=== PATIENT | female | born 1955 | race African-American/Black ===

== ENCOUNTER 2017-02-04 11:03 | Inpatient (IN) | payer MEDICAID ==
[~2017-02-04] VITALS: Ht 162.6 cm; Wt 59.0 kg
[2017-02-04] MEDS ORDERED: SODIUM CHLORIDE 0.9% 1,000 ML IV ONE (11:26)
[2017-02-04 11:58] LABS: BASOPHILS % 1.8 % (0.0-2.0); EOSINOPHILS % 0.7 % (0.0-5.0); HEMATOCRIT. 46.1 % (36.0-48.0); LYMPHOCYTES % 13.4 % (20.0-50.0); MEAN CORPUSCULAR HEMOGLOBIN 34.8 pg (28.0-32.0); MEAN PLATELET VOLUME 9.7 fl (7.4-10.4); MONOCYTES % 10.4 % (2.0-8.0); NEUTROPHILS % 73.7 % (40.0-76.0); PLATELET 252 x1000/uL (130-400); RED BLOOD CELL COUNT 4.61 mill/uL (4.2-5.4); RED CELL DISTRIBUTION WIDTH 14.5 % (11.6-14.6)
[2017-02-04 12:09] LABS: AMMONIA 20 uMol/L (<32)
[2017-02-04 12:12] LABS: INR 1.1; PARTIAL THROMBOPLASTIN TIME 31.3 sec (23.4-31.0); PROTHROMBIN TIME 11.6 sec (9.4-11.6)
[2017-02-04 12:15] LABS: CARBON DIOXIDE 25 mEq/L (21-32); CHLORIDE 103 mEq/L (98-107); ETHANOL BLOOD < 10 mg/dL; TROPONIN I < 0.02 ng/mL (0.00-0.04)
[2017-02-04] MEDS ORDERED: ASPIRIN 325MG EC TABLET PO ONE (13:00)
[2017-02-04 14:09] LABS: CLARITY URINE CLEAR (CLEAR); COLOR URINE YELLOW (YELLOW); GLUCOSE URINE TRACE (NEGATIVE); KETONES URINE TRACE (NEGATIVE); LEUKOCYTE ESTERASE URINE TRACE (NEGATIVE); NITRITE URINE POSITIVE (NEGATIVE); OCCULT BLOOD URINE NEGATIVE (NEGATIVE); PH URINE 7.5 (4.5-8.0); PROTEIN URINE NEGATIVE (NEGATIVE); UROBILINOGEN URINE 0.2 E.U./dL (0.2-1.0)
[2017-02-04 14:26] LABS: *AMPHETAMINES SCREEN URINE NEGATIVE (NEGATIVE); *BARBITURATES SCREEN URINE NEGATIVE (NEGATIVE); *BENZODIAZEPINES SCREEN URINE NEGATIVE (NEGATIVE); *COCAINE SCREEN URINE PRESUMTIVE POSITIVE (NEGATIVE); CANNABINOID URINE SCREEN NEGATIVE (NEGATIVE); METHADONE URINE SCREEN NEGATIVE (NEGATIVE); OPIATES URINE SCREEN NEGATIVE (NEGATIVE); PHENCYCLIDINE URINE SCREEN NEGATIVE (NEGATIVE)
[2017-02-04] MEDS ORDERED: DOCUSATE SODIUM 100MG CAPSULE PO PRN (14:30)
[2017-02-04] MEDS ORDERED: MAGNESIUM/ALUMINUM HYDROXIDE/SIMETHICONE 30ML UDC PO PRN (14:30)
[2017-02-04] MEDS ORDERED: LORAZEPAM 0.5MG TABLET PO PRN (14:30)
[2017-02-04] MEDS ORDERED: IPRATROPIUM/ALBUTEROL 0.5-3(2.5)MG/3ML NEB INH PRN (14:30)
[2017-02-04] MEDS ORDERED: ONDANSETRON HCL 4MG/2ML VIAL IV PRN (14:30)
[2017-02-04] MEDS ORDERED: ACETAMINOPHEN 325MG TABLET PO PRN (14:30)
[2017-02-04] MEDS ORDERED: CEFTRIAXONE 1 G PREMIX 50 ML IV ONE (16:00)
[2017-02-04 20:00] VITALS: BP 195/94
[2017-02-04] MEDS ORDERED: CEFTRIAXONE 1 G PREMIX 50 ML IV NR (21:00)
[2017-02-04 22:00] VITALS: BP 195/94
[2017-02-05] VITALS: BP 166/85
[2017-02-05] MEDS: CLONIDINE 0.1MG TABLET PO PRN ×2 (00:17→20:58)
[2017-02-05 00:47] LABS: CARBON DIOXIDE 28 mEq/L (21-32); CHLORIDE 100 mEq/L (98-107); CREATINE KINASE 69 IU/L (26-192); CREATINE KINASE MB FRACTION 1.1 ng/mL (0.5-3.6); TROPONIN I < 0.02 ng/mL (0.00-0.04)
[2017-02-05 04:00] VITALS: BP_SYST 135; BP_SYST 141; BP_DIAS 65; BP_DIAS 79
[2017-02-05] MEDS ORDERED: DEXTROSE 50% WATER 50ML SYRINGE IV PRN (06:15)
[2017-02-05 06:20] LABS: BASOPHILS % 0.3 % (0.0-2.0); EOSINOPHILS % 1.4 % (0.0-5.0); HEMATOCRIT. 45.9 % (36.0-48.0); HEMOGLOBIN. 15.8 g/dL (12.0-16.0); LYMPHOCYTES % 24.6 % (20.0-50.0); MEAN CORPUSCULAR VOLUME 101.7 fL (81.0-99.0); MEAN PLATELET VOLUME 10.4 fl (7.4-10.4); NEUTROPHILS % 61.7 % (40.0-76.0); PLATELET 246 x1000/uL (130-400); RED BLOOD CELL COUNT 4.51 mill/uL (4.2-5.4); RED CELL DISTRIBUTION WIDTH 14.4 % (11.6-14.6)
[2017-02-05 06:57] LABS: CREATINE KINASE 61 IU/L (26-192); CREATINE KINASE MB FRACTION 0.9 ng/mL (0.5-3.6); HDL CHOLESTEROL 54 mg/dL (40-59); LDL CHOLESTEROL 152 mg/dL (5-100); TROPONIN I < 0.02 ng/mL (0.00-0.04)
[2017-02-05] MEDS ORDERED: POTASSIUM CHLORIDE 20MEQ TABLET SR PO SCH (07:00)
[2017-02-05] MEDS: BLOOD SUGAR DIAGNOSTIC STRIP TEST SCH ×4 (07:40→21:04)
[2017-02-05 08:00] VITALS: BP 125/66
[2017-02-05] MEDS: INSULIN LISPRO 100 UNITS/ML SUBCUT SCH ×4 (08:10→21:05)
[2017-02-05] MEDS: ENOXAPARIN 40MG/0.4ML SYR SUBCUT SCH ×2 (08:43→08:44)
[2017-02-05] MEDS: CLOPIDOGREL 75MG TABLET PO SCH (08:47)
[2017-02-05] MEDS ORDERED: ASPIRIN 325MG EC TABLET PO SCH (09:00)
[2017-02-05 09:13] LABS: T4 FREE 0.94 ng/dL (0.76-1.46)
[2017-02-05 09:36] LABS: FOLIC ACID (FOLATE) SERUM 7.1 ng/mL (>5.38)
[2017-02-05 12:00] VITALS: BP 168/79
[2017-02-05] MEDS ORDERED: CEFTRIAXONE 1 G PREMIX 50 ML IV SCH (12:00)
[2017-02-05] MEDS: CEFTRIAXONE 1 G PREMIX 50 ML IV SCH (14:20)
[2017-02-05 16:00] VITALS: BP 139/79
[2017-02-05] MEDS ORDERED: IOHEXOL-350 100 ML BOTTLE ONE (16:28)
[2017-02-05 20:00] VITALS: BP 189/84
[2017-02-05] MEDS: ATORVASTATIN CALCIUM 20MG TABLET PO SCH (20:58)
[2017-02-06] VITALS: BP 122/78
[2017-02-06 04:00] VITALS: BP 146/79
[2017-02-06 07:34] LABS: BASOPHILS % 0.3 % (0.0-2.0); EOSINOPHILS % 0.7 % (0.0-5.0); HEMATOCRIT. 47.5 % (36.0-48.0); HEMOGLOBIN. 16.3 g/dL (12.0-16.0); MEAN CORPUSCULAR HEMOGLOBIN 35.1 pg (28.0-32.0); MEAN PLATELET VOLUME 10.3 fl (7.4-10.4); MONOCYTES % 11.4 % (2.0-8.0); NEUTROPHILS % 66.6 % (40.0-76.0); PLATELET 276 x1000/uL (130-400); RED BLOOD CELL COUNT 4.65 mill/uL (4.2-5.4); RED CELL DISTRIBUTION WIDTH 14.3 % (11.6-14.6)
[2017-02-06] MEDS: BLOOD SUGAR DIAGNOSTIC STRIP TEST SCH ×4 (07:40→21:17)
[2017-02-06 07:50] LABS: CARBON DIOXIDE 23 mEq/L (21-32); CHLORIDE 104 mEq/L (98-107)
[2017-02-06 08:00] VITALS: BP 135/69
[2017-02-06] MEDS: INSULIN LISPRO 100 UNITS/ML SUBCUT SCH ×4 (08:10→21:21)
[2017-02-06] MEDS: CLOPIDOGREL 75MG TABLET PO SCH (09:02)
[2017-02-06] MEDS: ENOXAPARIN 40MG/0.4ML SYR SUBCUT SCH (09:02)
[2017-02-06 12:00] VITALS: BP 121/69
[2017-02-06] MEDS: CEFTRIAXONE 1 G PREMIX 50 ML IV SCH (15:21)
[2017-02-06 16:00] VITALS: BP 147/90
[2017-02-06] MEDS: ATORVASTATIN CALCIUM 20MG TABLET PO SCH (21:15)
[2017-02-07] VITALS: BP 161/84
[2017-02-07 04:00] VITALS: BP 138/76
[2017-02-07] MEDS: BLOOD SUGAR DIAGNOSTIC STRIP TEST SCH ×4 (05:49→21:04)
[2017-02-07 08:00] VITALS: BP 136/79
[2017-02-07] MEDS: ENOXAPARIN 40MG/0.4ML SYR SUBCUT SCH (08:52)
[2017-02-07] MEDS: CLOPIDOGREL 75MG TABLET PO SCH (08:52)
[2017-02-07] MEDS: INSULIN LISPRO 100 UNITS/ML SUBCUT SCH ×4 (08:54→21:07)
[2017-02-07 12:00] VITALS: BP_SYST 146; BP_SYST 173; BP_DIAS 58; BP_DIAS 80
[2017-02-07 13:31] LABS: BASOPHILS % 0.5 % (0.0-2.0); HEMATOCRIT. 49.3 % (36.0-48.0); LYMPHOCYTES % 21.9 % (20.0-50.0); MEAN CORPUSCULAR HEMOGLOBIN 35.5 pg (28.0-32.0); MEAN CORPUSCULAR VOLUME 102.6 fL (81.0-99.0); MEAN PLATELET VOLUME 10.4 fl (7.4-10.4); MONOCYTES % 11.5 % (2.0-8.0); NEUTROPHILS % 65.1 % (40.0-76.0); PLATELET 261 x1000/uL (130-400); RED CELL DISTRIBUTION WIDTH 14.1 % (11.6-14.6)
[2017-02-07 13:51] LABS: CARBON DIOXIDE 27 mEq/L (21-32); CHLORIDE 99 mEq/L (98-107)
[2017-02-07] MEDS: CEFTRIAXONE 1 G PREMIX 50 ML IV SCH (15:39)
[2017-02-07 16:00] VITALS: BP 173/78
[2017-02-07 20:00] VITALS: BP 156/72
[2017-02-07] MEDS: ATORVASTATIN CALCIUM 20MG TABLET PO SCH (21:01)
[2017-02-08] VITALS: BP 153/80
[2017-02-08 04:00] VITALS: BP 150/75
[2017-02-08] MEDS: BLOOD SUGAR DIAGNOSTIC STRIP TEST SCH ×2 (05:46→12:40)
[2017-02-08 08:00] VITALS: BP 140/72
[2017-02-08] MEDS ORDERED: CYANOCOBALAMIN 1000MCG TABLET PO SCH (08:10)
[2017-02-08] MEDS: INSULIN LISPRO 100 UNITS/ML SUBCUT SCH ×2 (08:10→13:10)
[2017-02-08] MEDS: CLOPIDOGREL 75MG TABLET PO SCH (09:28)
[2017-02-08] MEDS: ENOXAPARIN 40MG/0.4ML SYR SUBCUT SCH (09:29)
[2017-02-08 12:00] VITALS: BP 103/67
[2017-02-08] MEDS: CEFTRIAXONE 1 G PREMIX 50 ML IV SCH (14:56)
[2017-02-08 15:30] VITALS: BP 103/67
[2017-02-08 16:00] VITALS: BP 133/68
== END 2017-02-08 17:45 | disposition home health service (06) | DRG 816 ==
LOC: ER 12:01 → 7WST 13:24 → ENRESERV 20:48
PROVIDERS: ADMIT Internal Medicine; ATTEND Internal Medicine
DX: T40.5X1A Poisoning by cocaine, accidental (unintentional), initial encounter (principal); I63.9 Cerebral infarction, unspecified; G93.6 Cerebral edema; G92 Toxic encephalopathy; I10 Essential (primary) hypertension; E11.9 Type 2 diabetes mellitus without complications; E78.5 Hyperlipidemia, unspecified; E78.00 Pure hypercholesterolemia, unspecified; F17.210 Nicotine dependence, cigarettes, uncomplicated; I65.22 Occlusion and stenosis of left carotid artery; I77.1 Stricture of artery; N39.0 Urinary tract infection, site not specified; T40.5X5A Adverse effect of cocaine, initial encounter; Y92.89 Other specified places as the place of occurrence of the external cause; F19.10 Other psychoactive substance abuse, uncomplicated
CPT/HCPCS: 36415; 70450; 70496; 70498; 70551; 71010; 80048; 80053; 80061; 80305; 81001; 82140; 82550; 82553; 82607; 82746; 82962; 83036; 83880; 84439; 84443; 84481; 84484; 85025; 85610; 85730; 86850; 86900; 87086; 93005; 93306; 93970; 96361; 96365; 97116; 97162; 97165; 99285; G0482; J0696; J1650; J1815; J7030; J7050; Q9967